=== PATIENT | male | born 1955 | race Caucasian/White ===

== ENCOUNTER 2021-08-30 09:44 | Emergency (ER) | payer MEDICARE, BC ==
[2021-08-30] MEDS ORDERED: Ketorolac 30 MG/ML SDV IM ONE (10:13)
[2021-08-30] MEDS ORDERED: Lidocaine 1% 20 ML MDV INJECT ONE (10:15)
[2021-08-30] MEDS ORDERED: Lidocaine 1% 10 ML MDV ONE (10:27)
[2021-08-30] MEDS ORDERED: Lidocaine 1% 10 ML MDV INJECT ONE (10:30)
[2021-08-30] MEDS ORDERED: ceFAZolin 1 GM in Sodium Chloride 0.9% 50 ML IV ONE (11:45)
[2021-08-30] MEDS ORDERED: Diphtheria,Pertussis(Acell),Tetanus Vaccine 0.5 ML Syringe IM ONE (11:58)
[2021-08-30] MEDS ORDERED: HYDROmorphone 0.5 MG/0.5 ML Syringe IVPUSH ONE (12:44)
== END 2021-08-30 14:00 ==
LOC: JD.ED 09:44
DX: S62.391B Other fracture of second metacarpal bone, left hand, initial encounter for open fracture (principal); S62.393B Other fracture of third metacarpal bone, left hand, initial encounter for open fracture; Z23 Encounter for immunization; W23.0XXA Caught, crushed, jammed, or pinched between moving objects, initial encounter
CPT/HCPCS: 73130; 90471; 90715; 96365; 96372; 96375; 99284; J0690; J1170; J1885